=== PATIENT | male | born 1945 | race Caucasian/White ===

== ENCOUNTER → 2017-11-08 | Outpatient (CLI) | payer BC ==
[2017-11-08 12:15] LABS: INR 1.47; PROTHROMBIN TIME 18.2 SECONDS (12.4-14.5)
== END ==
LOC: M WUC 10:25
DX: I48.2 Chronic atrial fibrillation (principal)
CPT/HCPCS: 85610

== ENCOUNTER → 2017-11-17 | Outpatient (CLI) | payer BC ==
[2017-11-17 16:41] LABS: INR 1.77; PROTHROMBIN TIME 21.2 SECONDS (12.4-14.5)
== END ==
LOC: M WUC 12:48
DX: I48.2 Chronic atrial fibrillation (principal)
CPT/HCPCS: 85610

== ENCOUNTER → 2017-11-23 | Outpatient (CLI) | payer BC ==
[2017-11-23 16:45] LABS: INR 2.54; PROTHROMBIN TIME 27.9 SECONDS (12.1-14.4)
== END ==
LOC: M WUC 11:35
DX: Z79.01 Long term (current) use of anticoagulants (principal)
CPT/HCPCS: 85610

== ENCOUNTER → 2017-12-23 | Outpatient (CLI) | payer BC ==
[2017-12-23 17:36] LABS: INR 1.95; PROTHROMBIN TIME 22.6 SECONDS (12.1-14.4)
== END ==
LOC: M WUC 10:35
DX: I48.2 Chronic atrial fibrillation (principal)
CPT/HCPCS: 85610

== ENCOUNTER → 2018-01-03 | Outpatient (CLI) | payer BC ==
[2018-01-03 13:15] LABS: INR 2.95; PROTHROMBIN TIME 31.3 SECONDS (12.1-14.4)
== END ==
LOC: M WUC 08:35
DX: Z51.81 Encounter for therapeutic drug level monitoring (principal); Z79.01 Long term (current) use of anticoagulants; I48.2 Chronic atrial fibrillation
CPT/HCPCS: 85610

== ENCOUNTER → 2018-01-03 | Outpatient (CLI) | payer BC | LOC: M WUC 08:30 | DX: M51.36 Other intervertebral disc degeneration, lumbar region (principal); Z96.0 Presence of urogenital implants; Z95.828 Presence of other vascular implants and grafts | CPT/HCPCS: 72110 ==

== ENCOUNTER → 2018-12-27 | Outpatient (CLI) | payer BC ==
[2018-12-27 13:05] LABS: INR 3.35; PROTHROMBIN TIME 33.9 SECONDS (11.8-14.0)
== END ==
LOC: M WUC 10:14
PROVIDERS: ATTEND Internal Medicine Interventional Cardiology
DX: Z51.81 Encounter for therapeutic drug level monitoring (principal); Z79.01 Long term (current) use of anticoagulants; I48.2 Chronic atrial fibrillation

== ENCOUNTER → 2019-12-13 | Outpatient (CLI) | payer BC ==
[2019-12-13 16:54] LABS: INR 2.6; PROTHROMBIN TIME 27.7 SECONDS (11.8-14.0)
== END ==
LOC: M WUC 14:00
PROVIDERS: ATTEND Internal Medicine Interventional Cardiology
DX: I48.20 Chronic atrial fibrillation, unspecified (principal); Z79.01 Long term (current) use of anticoagulants

== ENCOUNTER → 2020-02-05 | Outpatient (CLI) | payer OTHER ==
[2020-02-05 12:18] LABS: INR 1.78; PROTHROMBIN TIME 21.1 SECONDS (11.8-14.0)
== END ==
LOC: M WUC 10:23
PROVIDERS: ATTEND Internal Medicine Interventional Cardiology
DX: I48.91 Unspecified atrial fibrillation (principal); Z79.01 Long term (current) use of anticoagulants

== ENCOUNTER → 2020-02-19 | Outpatient (CLI) | payer OTHER ==
[2020-02-19 16:27] LABS: INR 2.74; PROTHROMBIN TIME 29.6 SECONDS (12.5-14.3)
== END ==
LOC: M WUC 11:04
DX: Z51.81 Encounter for therapeutic drug level monitoring (principal); Z79.01 Long term (current) use of anticoagulants; I48.20 Chronic atrial fibrillation, unspecified

== ENCOUNTER → 2020-04-17 | Outpatient (CLI) | payer MEDICARE, OTHER ==
[2020-04-17 14:42] LABS: INR 2.32
== END ==
LOC: M WUC 11:25
PROVIDERS: ATTEND Internal Medicine Interventional Cardiology
DX: I48.20 Chronic atrial fibrillation, unspecified (principal); Z79.01 Long term (current) use of anticoagulants

== ENCOUNTER → 2020-10-16 | Outpatient (CLI) | payer MEDICARE, OTHER ==
--- NOTE | 2020-10-16 18:30 | REP ---
INDICATION: PAIN IN LEFT LOWER LEG. COMPARISON: None. TECHNIQUE: AP and lateral views FINDINGS: No acute fracture or destructive osseous lesion. IMPRESSION: No acute abnormality <Electronically signed by Vitor Martínez > 10/16/20 [id number]
== END ==
LOC: M RAD 17:29
PROVIDERS: ATTEND Physician Assistant
DX: M79.662 Pain in left lower leg (principal); S80.12XA Contusion of left lower leg, initial encounter; X58.XXXA Exposure to other specified factors, initial encounter; Y92.9 Unspecified place or not applicable; Y99.9 Unspecified external cause status; Z95.2 Presence of prosthetic heart valve

== ENCOUNTER → 2020-10-16 | Outpatient (REF) | payer MEDICARE, OTHER ==
[2020-10-16 20:13] LABS: INR 2.4; PROTHROMBIN TIME 26.7 SECONDS (12.5-14.3)
== END ==
LOC: M LAB REF 19:47
PROVIDERS: ATTEND Internal Medicine Interventional Cardiology
DX: Z95.2 Presence of prosthetic heart valve (principal)

== ENCOUNTER → 2020-11-03 | Outpatient (CLI) | payer MEDICARE, OTHER ==
--- NOTE | 2020-11-03 17:40 | REP ---
INDICATION: NON PRESSURE ULCER RT LOWER LEG COMPARISON: None. TECHNIQUE: Real time de souza scale and Duplex Doppler evaluation of the bilateral lower extremity arterial vasculature using linear high frequency transducer. FINDINGS: De Souza scale and duplex doppler images demonstrate moderate diffuse plaquing bilaterally. On the right there are diffuse biphasic and triphasic waveforms noted. There is dilatation of the right popliteal artery 2.0 x 2.4 cm extending for a length of approximately 5 cm. Triphasic and monophasic waveforms are seen through the left popliteal artery, with monophasic waveforms in the left calf arteries. There is no definite focal stenosis identified bilaterally. No occlusion is visualized. Peak systolic velocities (cm/sec) Common femoral artery: Right 126; Left 135 Profunda femoris: Right 69; Left 106 SFA (proximal): Right 60; Left 172 SFA (mid): Right 88; Left 125 SFA (distal): Right 162; Left 112 Popliteal artery: Right 58; Left 71 PASQUALE (prox.): Right 82; Left 120 Tibioperoneal trunk: Right 40; Left 90 DATABASE MARKETING ANALYST (prox.): Right 41; Left 66 DATABASE MARKETING ANALYST (distal): Right 114; Left 91 PASQUALE (distal): Right 111; Left 95 IMPRESSION: Moderate diffuse plaquing bilaterally. Dilatation of the right popliteal artery 2.0 x 2.4 cm. No duplex Doppler sonographic evidence of hemodynamically significant stenosis of the bilateral lower extremity arterial system. <Electronically signed by Pelon De Souza > 11/03/20 [id number]
== END ==
LOC: M RAD 14:14
PROVIDERS: ATTEND Surgery
DX: I87.312 Chronic venous hypertension (idiopathic) with ulcer of left lower extremity (principal); L97.822 Non-pressure chronic ulcer of other part of left lower leg with fat layer exposed; I72.4 Aneurysm of artery of lower extremity

== ENCOUNTER → 2020-11-17 | Outpatient (CLI) | payer MEDICARE, OTHER ==
[2020-11-17 10:18] LABS: INR 2.85; PROTHROMBIN TIME 30.6 SECONDS (12.5-14.3)
== END ==
LOC: M WUC 08:35
PROVIDERS: ATTEND Internal Medicine Interventional Cardiology
DX: I48.20 Chronic atrial fibrillation, unspecified (principal); Z95.2 Presence of prosthetic heart valve

== ENCOUNTER → 2020-11-18 | Outpatient (POV) | payer MEDICARE, OTHER ==
[~2020-11-18] VITALS: Ht 190.5 cm; Wt 118.2 kg
[2020-11-18 10:17] VITALS: BP 152/80
--- NOTE | 2020-11-19 13:41 | IRCOV ---
[facility] IR Consult Office Visit IR Consult Office Visit DATE: Nov 18, 2020 REASON FOR CONSULTATION/CHIEF COMPLAINT: Right popliteal artery aneurysm. HISTORY OF PRESENT ILLNESS: 75-year-old with Marfan syndrome, under the care of vascular surgery and cardiothoracic surgery in [place]. Patient states he gets annual imaging and surveillance. He states he's had prior aortic and mitral valve replaced. 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 He's had multiple open-heart surgeries. 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 Patient is seeing wound care for a posttraumatic left anterior tibial wound. Incidentally on bilateral lower extremity arterial ultrasound, he was found to have dilation of the right popliteal artery. Patient denies lower extremity intermittent claudication and/or rest pain. Patient denies prior cold leg, gangrene, right lower extremity ulceration, vascular intervention and/or amputation. Patient denies pain in the right leg or prior embolic phenomena. Patient denies discoloration of toes. ALLERGIES: Please see below. HOME MEDICATIONS: Please see below. PAST MEDICAL HISTORY: Marfan's syndrome PAST SURGICAL HISTORY: Aortic and mitral valve replacement Hernia repair 7 Ureteral stent Open-heart surgery and replacement of his aorta. FAMILY HISTORY: Marfan syndrome. SOCIAL HISTORY: Smoker. Denies alcohol or drugs. REVIEW OF SYSTEMS: Otherwise negative. PHYSICAL EXAMINATION: VITAL SIGNS: Please see below. GENERAL APPEARANCE: Appears well. Comfortable at rest. Tall. Long arms and legs and fingers. Double-jointed. Protruding breastbone. Flatfeet. HEENT: No scleral icterus. RESPIRATORY: Normal breathing at rest. CARDIOVASCULAR: Normal rate. Artificial heart valve sounds. Midline thoracic scar. Protruding convex breastbone. ABDOMEN: Soft nontender. EXTREMITIES: Left lower extremity: edema to the knee. Color and temperature normal. Ulceration anterior left tibia. Motor 5 out of 5. Sensation intact. Femoral pulse 2+ popliteal pulse + DP/PT +. Right lower extremity: edema to the knee. Color and temperature normal. Ulceration anterior left tibia. Motor 5 out of 5. Sensation intact. Femoral pulse 2+ popliteal pulse + DP/PT +. No appreciable pulsatile mass in the popliteal fossa. No distal ulcers. No gangrene. No skin discoloration. NEUROLOGICAL: Alert and oriented. PSYCHIATRIC: Appropriate to circumstance. LABORATORY DATA: No recent labs. Imaging: I personally reviewed the bilateral lower extremity arterial ultrasound performed October 2020. Patent superficial femoral artery. Patent popliteal artery dilated to axial 2.4 x 2.4 cm. Craniocaudal 5.4 cm. There is flow within the popliteal artery. Patent below-knee runoff to the lower leg. I personally reviewed the patient's left tibia-fibula x-ray from 10/16/2020. Calcification in the area of the distal SFA and popliteal vasculature without stent. ASSESSMENT/PLAN: 75-year-old male with Marfan syndrome referred for evaluation of right popliteal aneurysm found on recent vascular ultrasound. This currently measures 2.4 cm and the patient is asymptomatic. I recommend patient follow up with his vascular surgery physician Dr. Jose Fay, in [place] for ongoing monitoring of this and/or intervention when appropriate. We will send the ultrasound images on a disc to Dr Jose Fay for continuity of care. I spent 30 minutes reviewing patient's records, imaging and in consultation with the patient. Thank you for this referral. Cc Dr. Maguire Cc Dr. Jose Fay Allergies Uncoded Allergies: N (Allergy, Unknown, 12/03/02) VS, I&O, 24H, Fishbone Vital Signs/I&O Vital Signs Date Time Temp Pulse Resp B/P (MAP) Pulse Ox O2 Delivery O2 Flow Rate FiO2 11/18/20 10:17 97.4 61 20 152/80 (104) 97 Room Air CRISTIN GONZÁLES MD Nov 19, 2020 13:41
== END ==
LOC: M IRPOV 09:29
PROVIDERS: ATTEND Radiology Diagnostic Radiology
DX: I72.4 Aneurysm of artery of lower extremity (principal); F17.210 Nicotine dependence, cigarettes, uncomplicated; Q87.418 Marfan syndrome with other cardiovascular manifestations; S85.132A Unspecified injury of anterior tibial artery, left leg, initial encounter; Z95.828 Presence of other vascular implants and grafts; Z95.4 Presence of other heart-valve replacement

== ENCOUNTER → 2020-12-31 | Outpatient (REF) | payer MEDICARE, OTHER ==
[2020-12-31 17:49] LABS: INR 2.69
== END ==
LOC: M LAB REF 16:27
PROVIDERS: ATTEND Internal Medicine
DX: I48.20 Chronic atrial fibrillation, unspecified (principal); Z95.2 Presence of prosthetic heart valve

== ENCOUNTER → 2021-01-30 | Outpatient (CLI) | payer MEDICARE, OTHER ==
[2021-01-30 11:32] LABS: INR 3.52; PROTHROMBIN TIME 35.6 SECONDS (12.7-14.5)
== END ==
LOC: M WUC 09:43
PROVIDERS: ATTEND Internal Medicine Interventional Cardiology
DX: Z95.2 Presence of prosthetic heart valve (principal); I48.20 Chronic atrial fibrillation, unspecified

== ENCOUNTER → 2021-02-27 | Outpatient (CLI) | payer MEDICARE, OTHER ==
[2021-02-27 11:58] LABS: INR 2.03; PROTHROMBIN TIME 23.4 SECONDS (12.7-14.5)
== END ==
LOC: M WUC 08:55
PROVIDERS: ATTEND Internal Medicine Interventional Cardiology
DX: Z79.01 Long term (current) use of anticoagulants (principal)

== ENCOUNTER → 2022-10-27 | Outpatient (REF) | payer MEDICARE, OTHER ==
[2022-10-27 17:12] LABS: INR 2.22
== END ==
LOC: M LABWUC 16:11
PROVIDERS: ATTEND Internal Medicine Interventional Cardiology
DX: I48.20 Chronic atrial fibrillation, unspecified (principal); Z79.01 Long term (current) use of anticoagulants; Z95.2 Presence of prosthetic heart valve

== ENCOUNTER → 2022-11-24 | Outpatient (REF) | payer MEDICARE, OTHER ==
[2022-11-24 17:18] LABS: INR 2.52; PROTHROMBIN TIME 27.6 SECONDS (12.5-14.5)
== END ==
LOC: M LABWUC 16:07
PROVIDERS: ATTEND Internal Medicine Interventional Cardiology
DX: Z79.01 Long term (current) use of anticoagulants (principal); Z95.2 Presence of prosthetic heart valve

== ENCOUNTER → 2023-01-03 | Outpatient (REF) | payer MEDICARE, OTHER ==
[2023-01-03 12:28] LABS: INR 2.97; PROTHROMBIN TIME 31.4 SECONDS (12.5-14.5)
== END ==
LOC: M WUC 11:11
PROVIDERS: ATTEND Internal Medicine Interventional Cardiology
DX: Z79.01 Long term (current) use of anticoagulants (principal); I48.20 Chronic atrial fibrillation, unspecified; Z95.2 Presence of prosthetic heart valve

== ENCOUNTER → 2023-02-10 | Outpatient (CLI) | payer MEDICARE, OTHER ==
[2023-02-10 19:13] LABS: INR 2.35; PROTHROMBIN TIME 25.2 SECONDS (12.5-14.5)
== END ==
LOC: M WUC 15:20
PROVIDERS: ATTEND Internal Medicine Interventional Cardiology
DX: I48.20 Chronic atrial fibrillation, unspecified (principal); Z95.2 Presence of prosthetic heart valve

== ENCOUNTER → 2023-03-02 | Outpatient (REF) | payer MEDICARE, OTHER ==
[2023-03-02 16:40] LABS: INR 2.31; PROTHROMBIN TIME 24.9 SECONDS (12.5-14.5)
== END ==
LOC: M LABWUC 16:03
PROVIDERS: ATTEND Internal Medicine Interventional Cardiology
DX: Z79.01 Long term (current) use of anticoagulants (principal); I48.20 Chronic atrial fibrillation, unspecified; Z95.2 Presence of prosthetic heart valve

== ENCOUNTER → 2023-03-22 | Outpatient (CLI) | payer MEDICARE, OTHER ==
[2023-03-22 17:40] LABS: INR 3.15; PROTHROMBIN TIME 31.6 SECONDS (12.5-14.5)
== END ==
LOC: M WUC 14:05
PROVIDERS: ATTEND Internal Medicine Interventional Cardiology
DX: Z95.2 Presence of prosthetic heart valve (principal)

== ENCOUNTER → 2023-10-25 | Outpatient (CLI) | payer MEDICARE, OTHER ==
[2023-10-25 13:15] LABS: INR 3.13
== END ==
LOC: M WUC 09:17
DX: I48.19 Other persistent atrial fibrillation (principal)

== ENCOUNTER → 2023-12-21 | Outpatient (CLI) | payer MEDICARE, OTHER ==
[2023-12-21 17:11] LABS: INR 2.4; PROTHROMBIN TIME 25.3 SECONDS (12.5-14.5)
== END ==
LOC: M WUC 14:25
PROVIDERS: ATTEND Internal Medicine Cardiovascular Disease
DX: I48.19 Other persistent atrial fibrillation (principal)

== ENCOUNTER → 2024-01-31 | Outpatient (CLI) | payer MEDICARE, OTHER ==
[2024-01-31 16:28] LABS: INR 2.44; PROTHROMBIN TIME 25.6 SECONDS (12.5-14.5)
== END ==
LOC: M WUC 10:37
PROVIDERS: ATTEND Internal Medicine Cardiovascular Disease
DX: I48.19 Other persistent atrial fibrillation (principal)

== ENCOUNTER → 2024-10-17 | Outpatient (REF) | payer MEDICARE, OTHER ==
[2024-10-17 14:27] LABS: INR 2.52; PROTHROMBIN TIME 27.2 SECONDS (12.5-14.5)
== END ==
LOC: M LABWUC 14:09
PROVIDERS: ATTEND Internal Medicine Cardiovascular Disease
DX: I48.0 Paroxysmal atrial fibrillation (principal)

== ENCOUNTER → 2024-12-20 | Outpatient (CLI) | payer MEDICARE, OTHER ==
[2024-12-20 12:38] LABS: INR 3.27
== END ==
LOC: M WUC 10:46
PROVIDERS: ATTEND Internal Medicine Cardiovascular Disease
DX: I48.0 Paroxysmal atrial fibrillation (principal); Z79.01 Long term (current) use of anticoagulants; N39.0 Urinary tract infection, site not specified

== ENCOUNTER → 2024-12-20 | Outpatient (REF) | payer MEDICARE, OTHER | LOC: M LABWUC 11:44 | PROVIDERS: ATTEND Urology | DX: N39.0 Urinary tract infection, site not specified (principal) ==

== ENCOUNTER → 2025-02-07 | Outpatient (CLI) | payer MEDICARE, OTHER ==
[2025-02-07 17:51] LABS: INR 2.67
== END ==
LOC: M WUC 13:43
PROVIDERS: ATTEND Internal Medicine Cardiovascular Disease
DX: I48.0 Paroxysmal atrial fibrillation (principal)

== ENCOUNTER → 2025-02-13 | Outpatient (CLI) | payer MEDICARE ==
[2025-02-13 18:18] LABS: BASO # 0.1 10^3/uL (0.0-0.2); BASO % 1.2 % (0.0-1.0); EOS # 0.1 10^3/uL (0.0-0.5); EOS % 3.0 % (0.0-3.0); LYMPH # 0.5 10^3/uL (1.5-5.0); LYMPH % 10.6 % (24.0-44.0); MONO # 0.6 10^3/uL (0.0-0.8); MONO % 12.7 % (2.0-8.0); NEUTROPHILS # 3.1 10^3/uL (1.5-8.5); NEUTROPHILS % 72.3 % (36.0-66.0); PLATELET COUNT, AUTOMATED 147 10^3/uL (150-450)
[2025-02-13 18:30] LABS: ERYTHROCYTE SEDIMENTATION RATE 19 mm/hr (0-20)
[2025-02-13 18:50] LABS: C REACTIVE PROTEIN QUANTITATIV 5.77 MG/DL (<1.0)
== END ==
LOC: M WUC 14:22
PROVIDERS: ATTEND Physician Assistant
DX: M25.521 Pain in right elbow (principal); M19.021 Primary osteoarthritis, right elbow; M25.421 Effusion, right elbow